=== PATIENT | female | born 1980 | race Caucasian/White ===

== ENCOUNTER 2018-11-16 07:15 | Day surgery (SDC) | payer MEDICAID, OTHER ==
[2018-11-16] MEDS ORDERED: LACTATED RINGERS 1,000 ML IV ONE (07:28)
[2018-11-16] MEDS ORDERED: SCOPOLAMINE HYDROBROMIDE 1.5MG/72HR PATCH TD ONE (07:28)
[2018-11-16] MEDS ORDERED: ENOXAPARIN SODIUM 40 MG/0.4 ML DISP.SYRIN SQ ONE (07:30)
[2018-11-16] MEDS ORDERED: FAMOTIDINE 20 MG/2 ML VIAL ONE (07:31)
[2018-11-16] MEDS ORDERED: LIDOCAINE HCL 1% MDV 200MG/20ML VIAL ONE (08:16)
[2018-11-16] MEDS ORDERED: LIDOCAINE HCL 1% PF 300MG/30ML VIAL ONE (08:48)
[2018-11-16] MEDS ORDERED: NORMAL SALINE 1,000 ML IV.SOLN IV ONE (08:48)
[2018-11-16] MEDS ORDERED: fentaNYL CITRATE/PF 100 MCG/2 ML INJ. ONE ×2 (08:48→12:12)
[2018-11-16] MEDS ORDERED: BUPIV. HCL 0.25% (2.5MG/ML)/EPI. (1:200,000) PF 10 ML VIAL IM ONE (08:48)
[2018-11-16] MEDS ORDERED: KETOROLAC TROMETHAMINE 30 MG/1ML VIAL ONE (08:48)
[2018-11-16] MEDS ORDERED: ONDANSETRON HCL/PF 4 MG/ 2ML VIAL ONE (08:48)
[2018-11-16] MEDS ORDERED: SEVOFLURANE 250 ML LIQUID IH ONE (08:48)
[2018-11-16] MEDS ORDERED: ACETAMINOPHEN 1,000 MG/100 ML INJ IV ONE (08:48)
[2018-11-16] MEDS ORDERED: MIDAZOLAM HCL 2 MG/2 ML VIAL ONE (08:48)
[2018-11-16] MEDS ORDERED: PROPOFOL 200 MG/20 ML VIAL IV ONE (08:48)
[2018-11-16] MEDS ORDERED: ceFAZolin SODIUM 1 GM VIAL ONE (08:48)
[2018-11-16] MEDS ORDERED: ROCURONIUM BROMIDE 10 MG/ML 5ML VIAL ONE (08:48)
[2018-11-16] MEDS ORDERED: FENTANYL CITRATE/PF 250 MCG/5 ML INJ. ONE (08:48)
[2018-11-16] MEDS ORDERED: SUGAMMADEX SODIUM 200 MG/2 ML VIAL IV ONE (08:48)
[2018-11-16] MEDS ORDERED: LACTATED RINGERS 1,000 ML IV.SOLN IV ONE ×2 (08:48)
[2018-11-16] MEDS ORDERED: DEXAMETHASONE SOD PHOS 4 MG/ML VIAL ONE (08:48)
[2018-11-16] MEDS ORDERED: LIDOCAINE HCL 2% PF 100MG/5ML VIAL IJ ONE (08:48)
[2018-11-16] MEDS ORDERED: HYDROcodone /APAP 5/325 1 EACH TABLET ONE (14:29)
[2019-01-12 10:01] VITALS: BP 150/87
== END 2018-11-16 14:35 | disposition home or self-care (01) ==
LOC: OPSURG 07:15
PROVIDERS: ATTEND Surgery
DX: E66.01 Morbid (severe) obesity due to excess calories (principal); K95.09 Other complications of gastric band procedure; Z32.02 Encounter for pregnancy test, result negative
CPT/HCPCS: 81025; J0690; J1100; J1650; J1885; J2001; J2250; J2405; J2704; J3010; 43774; A9270-GY; J7030; J7120

== ENCOUNTER 2019-01-11 06:59 | Day surgery (SDC) | payer MEDICAID ==
[2019-01-11] MEDS ORDERED: PROPOFOL 200 MG/20 ML VIAL IV ONE (08:48)
[2019-01-11] MEDS ORDERED: SODIUM CHLORIDE IRRIG SOLUTION 3,000 ML IRRIG.SOLN IR ONE (08:48)
[2019-01-11] MEDS ORDERED: DEXAMETHASONE SODIUM PHOSPHATE 10 MG/ML VIAL ONE (08:48)
[2019-01-11] MEDS ORDERED: FAMOTIDINE 20 MG/2 ML VIAL IV ONE (08:48)
[2019-01-11] MEDS ORDERED: LIDOCAINE HCL 2% PF 100MG/5ML VIAL IJ ONE (08:48)
[2019-01-11] MEDS ORDERED: ROCURONIUM BROMIDE 10 MG/ML 5ML VIAL ONE (08:48)
[2019-01-11] MEDS ORDERED: ESMOLOL HCL 100 MG/10 ML IV ONE (08:48)
[2019-01-11] MEDS ORDERED: LIDOCAINE HCL 1% PF 300MG/30ML VIAL ONE (08:48)
[2019-01-11] MEDS ORDERED: SUGAMMADEX SODIUM 200 MG/2 ML VIAL IV ONE (08:48)
[2019-01-11] MEDS ORDERED: LACTATED RINGERS 1,000 ML IV.SOLN IV ONE ×2 (08:48)
[2019-01-11] MEDS ORDERED: ENOXAPARIN SODIUM 40 MG/0.4 ML DISP.SYRIN SQ ONE (08:48)
[2019-01-11] MEDS ORDERED: BUPIV. HCL 0.25% (2.5MG/ML)/EPI. (1:200,000) PF 30 ML VIAL IJ ONE (08:48)
[2019-01-11] MEDS ORDERED: SEVOFLURANE 250 ML LIQUID IH ONE (08:48)
[2019-01-11] MEDS ORDERED: MIDAZOLAM HCL 2 MG/2 ML VIAL ONE (08:48)
[2019-01-11] MEDS ORDERED: LABETALOL HCL 20 MG/4 ML SYRINGE IV ONE ×2 (08:48→11:43)
[2019-01-11] MEDS ORDERED: LEVALBUTEROL NEB 1.25 MG/3 ML VIAL.NEB NEB ONE (08:48)
[2019-01-11] MEDS ORDERED: FENTANYL CITRATE/PF 250 MCG/5 ML INJ. ONE (08:48)
[2019-01-11] MEDS ORDERED: PROMETHAZINE HCL 25 MG/ML VIAL ONE ×2 (08:48→11:57)
[2019-01-11] MEDS ORDERED: CLINDAMYCIN PHOSPHATE 900 MG/6 ML VIAL ONE (08:48)
[2019-01-11] MEDS ORDERED: SCOPOLAMINE HYDROBROMIDE 1.5MG/72HR PATCH TD ONE (08:48)
[2019-01-11] MEDS ORDERED: hydrALAZINE HCL 20 MG/1 ML ONE ×2 (08:48→12:22)
[2019-01-11] MEDS ORDERED: HYDROmorphone HCL/PF 1 MG/ML VIAL ONE ×2 (08:48→12:01)
--- NOTE | 2019-01-12 12:06 | Operative Note ---
PREOPERATIVE DIAGNOSIS: 1. Morbid obesity. 2. History of lap band placement and subsequent removal. POSTOPERATIVE DIAGNOSIS: 1. Morbid obesity. 2. History of lap band placement and subsequent removal. PROCEDURES PERFORMED: 1. Laparoscopic vertical sleeve gastrectomy. 2. Upper gastrointestinal endoscopy. SURGEON: Negro Vasquez M.D. INDICATIONS FOR PROCEDURE: Ms. Alvarez is a 38-year-old female who presented with features of morbid obesity. She has a history of lap band placement and subsequent removal a few months ago. The patient gained some weight since the lap band was removed. The patient currently weighs 228 pounds with a BMI of 36. The patient was advised laparoscopic vertical sleeve gastrectomy and possible hiatal hernia repair. The patient showed understanding and agreed to proceed. DESCRIPTION OF PROCEDURE: After explaining to the patient in detail and informed consent was obtained, the patient was identified in the preoperative holding area. The patient was transferred to the operating room and was placed in supine position. Sequential compressive devices were placed for DVT prophylaxis. Preoperative antibiotics were given. After induction of anesthesia, the abdomen was prepped and draped in a sterile fashion. Through a left upper quadrant 1-cm incision, and using Optiview technique, the peritoneal cavity was entered and pneumoperitoneum was created. Thereafter, under direct vision, another 5-mm trocar was placed in the left midabdomen and another 15-mm trocar was placed in the right midabdomen. Through a 1-cm incision in the right subcostal region, another 5-mm trocar was placed. Through a 1-cm incision in the epigastrium, a Rena retractor was introduced and the left lobe of the liver was retracted. On initial inspection, the patient was noted to have no evidence of hiatal hernia. I took down the gastroepiploic vessels using a LigaSure. This was continued superiorly. The short gastric vessels were taken down. The gastrophrenic ligament was divided and the Angle of His was mobilized. The posterior attachments of the stomach on the pancreas were released. Distally, the gastroepiploic vessels were taken down up to about 4 cm proximal to the pylorus. At this point, a #38 [place] Hurst Bougie was introduced into the stomach and was placed along the lesser curve. The stomach was then divided in a vertical fashion with multiple Endo TIFFANY Covidien Black Load Staplers. The first firing was directed outwards towards the greater curvature. Subsequent firings were directed towards the Angle of His to create a loose sleeve around the #38 [place]an bougie. The bougie was then removed and an upper GI endoscopy was performed at this point. The scope was introduced into the esophagus and was gradually advanced into the stomach. The GE junction appeared normal. The sleeve size appeared normal. No evidence of any active bleeding was noted. The stomach was insufflated with air and irrigation of fluid along the staple line revealed no evidence of air leak. The stomach was then suctioned out and the scope was removed. Absolute hemostasis was ensured. Thorough saline irrigation was given. The Rena retractor was removed. Approximately 10 mL of a lidocaine- Marcaine mix was instilled under the left hemidiaphragm. The sleeve gastrectomy specimen was removed. The abdomen was then deflated. The incisions were closed with 4-0 Monocryl. Dermabond was applied. Approximately 10 mL of a lidocaine- Marcaine mix was injected into all the incisions. The patient was awakened from anesthesia and was transferred to the recovery room in stable condition. ESTIMATED BLOOD LOSS: Approximately 25 mL. CONDITION OF THE PATIENT: Stable. FLUIDS GIVEN: Per Anesthesia note. SPECIMEN(S) SENT: Sleeve gastrectomy specimen. COMPLICATIONS: None. ANESTHESIA: General. Negro Vasquez M.D. KILLIAN/waqar Job #[id number] @ 1128 @ 1123 BOBBI
== END 2019-01-11 13:25 | disposition other institution (70) ==
LOC: OPSURG 06:59
PROVIDERS: ATTEND Surgery
DX: E66.01 Morbid (severe) obesity due to excess calories (principal); Z68.36 Body mass index [BMI] 36.0-36.9, adult
CPT/HCPCS: 43235; 43775; 88305; A9270; J0360; J1170; J1650; J2001; J2250; J2550; J2704; J7120; J7614

== ENCOUNTER 2019-01-11 13:26 | Inpatient (IN) | payer MEDICAID ==
[2019-01-11] MEDS: 0.9 % SODIUM CHLORIDE 1,000 ML IV SCH ×2 (14:30→22:35)
[2019-01-11] MEDS: ONDANSETRON HCL/PF 4 MG/ 2ML VIAL IVP PRN (15:27)
[2019-01-11] MEDS: KETOROLAC TROMETHAMINE 30 MG/1ML VIAL IV PRN (15:30)
--- NOTE | 2019-01-11 15:57 | History and Physical Report ---
History of Present Illnes - History of Present Illness Reason for Visit: S/P gastric sleeve procedure History of Present Illness: Patient is a 38-year-old white female with a 10 year history of increasing weight gain to the point she now has morbid obesity. Patient has tried various dietary regimen medications and exercising is not been successful in maintaining weight loss. If is felt that she would benefit from gastric surgery to help promote weight loss. Patient underwent gastric sleeve procedure with no intraopertive complications. Patient is being admitted for post operative care. - Past Medical History Cardiac: denies: CAD, HTN Endocrine: denies: Diabetes, Hyperthyroidism - Past Surgical History Past Surgical History: Cholecystectomy, Other (lap band and removal, ganglion c yst removal, lasik eye surgery) - Past Family History Father Family History: Cancer (unknown source), (44yo) Mother Family History: Hypertension, Thyroid Disfunction - Past Social History Smoke: No Occupation: resturant cash crop farmer Alcohol: Rare Drugs: Marijuana (rare) Lives: Alone, With Family Domestic Violence: Negative - Health Maintenance Health Maintenance: Influenza Vaccine Influenza Vaccine: Current for this Influenza Season Pneumonia Vaccine: No Resuscitation Status: Resusciation Status Resuscitation Status Full Code - Unable to Obtain History Unable to Obtain: Yes Review of Systems - Review of Systems Constitutional: negative: Fever, Chills Eyes: negative: pain, conjunctivae inflammation, eyelid inflammation ENT: negative: Ear Discharge, Nose Pain, Nose Discharge, Nose Congestion, Mouth Pain, Throat Pain Respiratory: negative: Cough, Shortness of Breath, Hemoptysis, SOB with Excertion, Pleuritic Pain, Sputum, Wheezing Cardiovascular: negative: Chest Pain, Palpitations, Orthopnea, Edema Gastrointestinal: negative: Nausea, Vomiting, Abdominal Pain, Diarrhea, Constipation, Melena, Hematochezia Genitourinary: negative: Dysuria, Frequency, Incontinence, Hematuria, Retention Musculoskeletal: negative: Back Pain Skin: negative: Rash Neurological: negative: Weakness, Numbness, Incoordination, Change in Speech, Confusion, Seizures - Medications/Allergies Allergies/Adverse Reactions: Allergies Allergy/AdvReac Type Severity Reaction Status Date / Time adhesive tape Allergy Verified 01/11/19 14:33 magnesium sulfate Allergy Verified 01/11/19 14:33 [From Epsom Salt] oxycodone [From Percocet] Allergy Verified 01/11/19 14:33 Penicillins Allergy Verified 01/11/19 14:33 Home Medications: Home Medications Cetirizine HCl [Children's Zyrtec Allergy] 10 mg PO D PRN MDD 10 01/11/19 Omeprazole Magnesium [Acid Center Machine Operator] 40 mg PO D 01/11/19 Current Inpatient Medications: Current Inpatient Medications Hydrocodone Bitart/Acetaminophen (Hycet 7.5-325mg/15 Ml Ud Cup) 30 ml PO Q4 PRN PRN Reason: Moderate Pain (Score 5-7) Stop: 01/15/19 13:36 Enoxaparin Sodium (Lovenox) 40 mg SQ DAILY [facility] Stop: 01/26/19 08:59 Famotidine (Pepcid) 20 mg IVP BID [facility] Stop: 01/15/19 20:59 Hydromorphone HCl (Dilaudid) 2 mg PO Q4H PRN PRN Reason: Severe Pain (Score 8-10) Stop: 01/15/19 13:36 Sodium Chloride (Normal Saline) 1,000 mls @ 150 mls/hr IV Q7H [facility] Last Admin: 01/11/19 14:30 Dose: 150 mls/hr Clindamycin Phosphate 600 mg/ (Water) 50 mls @ 50 mls/hr IV Q8H [facility] Stop: 01/12/19 03:59 Ketorolac Tromethamine (Toradol) 30 mg IV Q6H PRN PRN Reason: For Mild Pain Stop: 01/15/19 13:36 Last Admin: 01/11/19 15:30 Dose: 30 mg Ondansetron HCl (Zofran) 4 mg IVP Q6H PRN PRN Reason: Nausea / Vomiting Stop: 01/15/19 13:36 Last Admin: 01/11/19 15:27 Dose: 4 mg Exam - Exam Vital Signs: Vital Signs (72 hours) 01/11/19 14:00 Temperature 97.5 F L Pulse Rate [ 77 Left] Respiratory 22 Rate Blood Pressure 154/89 [Left Arm] O2 Sat by Pulse 94 Oximetry General: Alert, Oriented to Person, Oriented to Place, Oriented to Time, Cooperative HEENT: Atraumatic, PERRLA, EOMI, Mouth Mucous membr. moist/[place], Nose Mucous membr. moist/[place] Neck: Normal Range of Motion Carotids: WNL Thyroid: WNL Lungs: Clear to auscultation, Normal air movement, Speaks full Sentences Cardiovascular: Regular rate, Normal S1, Normal S2, No murmurs Abdomen: Normal bowel sounds, Soft, No hepatospenomegaly, No masses, Other (mild diffuse tenderness, incision sites look clean), Decreased Bowel Sounds. No: Distended Integumentary: Normal, [place], Warm, Dry Extremities: No clubbing, No cyanosis, No edema, Normal pulses, No tenderness/swelling Neurological: Normal gait, Normal speech, Strength Equal Bilat, Normal tone, Sensation intact, Cranial nerves 3-12 NL, Reflexes 2+ Psych/Mental Status: Mental status NL, Mood NL, Appropriate Affect, Intact Judgment Assessment/Plan - Assessment/Plan (1) S/P gastric surgery Status: Acute Assessment: stable (2) Environmental allergies Status: Acute Assessment: stable VTE Assessment - RISK FACTOR SCORE VTE RISK FACTOR SCORES: AGE 40-60 YEARS, MAJOR SURGERY/ANESTHESIA TIME > 1 HOUR - RISK VTE MODERATE RISK: SCORE OF 2 (RISK PROXIMAL DVT 2-4%) PROPHYAXIS NEEDED
[2019-01-11 17:00] VITALS: BMI 39.6
[2019-01-11] MEDS ORDERED: PROMETHAZINE HCL 25 MG in 0.9 % SODIUM CHLORIDE 50 ML IV PRN (18:29)
[2019-01-11] MEDS ORDERED: PROMETHAZINE HCL 25 MG/ML VIAL ONE (18:31)
[2019-01-11] MEDS ORDERED: 0.9 % SODIUM CHLORIDE(MINIBAG+ 100 ML IV ONE (18:35)
[2019-01-11] MEDS: HYDROmorphone HCL 2 MG TABLET PO PRN (18:50)
[2019-01-11] MEDS: FAMOTIDINE 20 MG/2 ML VIAL IVP SCH (20:01)
[2019-01-11] MEDS ORDERED: CLINDAMYCIN PHOSPHATE/D5W 600 MG/50 ML PIGGYBACK IV ONE (20:16)
[2019-01-11] MEDS: CLINDAMYCIN PHOSPHATE/D5W 600 MG in PREMIX BAG 1 BAG IV SCH (20:30)
[2019-01-12] MEDS: KETOROLAC TROMETHAMINE 30 MG/1ML VIAL IV PRN ×2 (01:25→21:02)
[2019-01-12] MEDS: ONDANSETRON HCL/PF 4 MG/ 2ML VIAL IVP PRN ×3 (01:30→21:03)
[2019-01-12] MEDS: HYDROCODON-ACETAMIN 7.5-325/15ML SOLN UD CUP PO PRN ×2 (01:44→11:17)
[2019-01-12] MEDS ORDERED: CLINDAMYCIN PHOSPHATE/D5W 600 MG/50 ML PIGGYBACK IV ONE (02:36)
[2019-01-12] MEDS: CLINDAMYCIN PHOSPHATE/D5W 600 MG in PREMIX BAG 1 BAG IV SCH (02:45)
[2019-01-12] MEDS: 0.9 % SODIUM CHLORIDE 1,000 ML IV SCH ×3 (04:17→17:51)
--- NOTE | 2019-01-12 06:24 | Inpatient Progress Note ---
Subjective - Required Recertification Statement I anticipate X number of days because-include discharge plan: 1 - Review of Systems Events since last encounter: Patient states that she had a decent night-she had some nausea yesterday- she states nausea is mild this morning- abdominal pain is improving- she states that she has been belching and passing gas. She is excited that she will get to advance her diet today- she has family at the bedside- educated patient on continuing to ambulate today, continue to use incentive spirometer frequently and use SCDs while in bed. General: Appetite (hungry). Denies: Chills, Night Sweats HEENT: Denies: Head Aches, Sinus Congestion Pulmonary: Denies: Dyspnea, Cough Cardiovascular: Denies: Chest Pain, Palpitations, Light Headedness Gastrointestinal: Nausea, Abdominal Pain. Denies: Vomiting Genitourinary: Denies: Dysuria Musculoskeletal: Denies: Back Pain Neurological: Denies: Weakness, Confusion Objective - Exam Vitals and I&O: Vital Signs Temp 97.9 F 01/12/19 06:00 Pulse 56 L 01/12/19 06:00 Resp 18 01/12/19 06:00 BP 140/66 01/12/19 06:00 Pulse Ox 97 01/12/19 06:00 Intake & Output 01/11/19 01/11/19 01/12/19 11:59 23:59 11:59 Intake Total 600 Output Total 1400 700 Balance -800 -700 Weight 101.605 kg Intake: IV 600 right AC 600 Output: Urine 1400 700 Other: Voiding Method Toilet # Voids 1 # Bowel Movements 1 General: Alert, Oriented to Person, Oriented to Place, Oriented to Time, Solar Project Manager perative, No acute distress, Morbidly Obese HEENT: PERRLA, Mouth Mucous membr. moist/[place], Nose Mucous membr. moist/[place] Neck: Supple, +2 carotid pulse wo bruit Lungs: Clear to auscultation, Normal air movement, Speaks full Sentences Cardiovascular: Regular rate, Normal S1, Normal S2 Abdomen: Soft, Decreased Bowel Sounds Extremities: No edema, Normal pulses, No tenderness/swelling Skin: Normal, [place], Warm, Dry Neurological: Normal gait, Normal speech, Strength Equal Bilat, Normal tone, Sensation intact Psych/Mental Status: Mental status NL, Mood NL, Appropriate Affect, Intact Judgment Assessment/Plan - Assessment/Plan (1) Morbid (severe) obesity due to excess calories Status: Acute Current Visit: Yes Plan: will continue with gastric sleeve protocol diet (2) S/P gastrointestinal surgery Status: Acute Current Visit: Yes Assessment: Incision without redness or drainage, positive bowel sounds, minimal discomfort, belching and flatus, no extremity pain or edema Plan: Will continue with IVF, IV Pepcid, frequent ambulation, frequent incentive spirometer use, SCDs while in bed, advance diet per bariatric stage 1
[2019-01-12] MEDS: FAMOTIDINE 20 MG/2 ML VIAL IVP SCH ×2 (09:38→21:10)
[2019-01-12] MEDS: ENOXAPARIN SODIUM 40 MG/0.4 ML DISP.SYRIN SQ SCH (09:38)
[2019-01-12] MEDS: HYDROmorphone HCL 2 MG TABLET PO PRN (16:09)
[2019-01-13] MEDS: 0.9 % SODIUM CHLORIDE 1,000 ML IV SCH ×2 (00:30→06:24)
[2019-01-13] MEDS: KETOROLAC TROMETHAMINE 30 MG/1ML VIAL IV PRN (06:18)
--- NOTE | 2019-01-13 06:58 | Discharge Summary ---
Discharge Summary - Discharge Sumary History of Present Illness: Patient is a 38-year-old white female with an extensive history of increasing weight gain to the point she now has morbid obesity. Patient has tried various dietary regimens, medications, and exercising but has not been successful in maintaining weight loss. Condition at Discharge: Stable Home Medications: Ambulatory Orders Medication Instructions Recorded Cetirizine HCl [Children's Zyrtec 10 mg PO D PRN MDD 10 01/11/19 Allergy] Omeprazole Magnesium [Acid Blackjack Pit Boss] 40 mg PO D 01/11/19 Consultations this Visit: None Procedures this Visit: Other (S/P Gastric Sleeve Procedure) Allergies/Adverse Reactions: Allergies Allergy/AdvReac Type Severity Reaction Status Date / Time adhesive tape Allergy Verified 01/11/19 14:33 magnesium sulfate Allergy Verified 01/11/19 14:33 [From Epsom Salt] oxycodone [From Percocet] Allergy Verified 01/11/19 14:33 Penicillins Allergy Verified 01/11/19 14:33 Discharge Summary: Patient is a 38-year-old female that underwent the gastric sleeve procedure and has done well. She has been very cooperative with her care by ambulating frequently, using her incentive spirometer, and wearing her SCDs while in bed. She has been compliant with her diet during hospitalization. She is having minimal discomfort at this time and minimal nausea- she has is passing gas and belching. She is aware of discharge instructions and what she can and cannot do post surgical- she is aware of the strict diet she must follow to decrease discomfort and have success after procedure. She has family support and significant other will be taking her home- medications written by surgeon given to patient. She feels ready to go home. Hospital Course: Patient received pain medications, antiemetics, and IVF and was transitioned to oral. She has been up ambulating and using incentive spirometer. - Final Diagnosis (1) Morbid (severe) obesity due to excess calories Problems: Will follow gastric sleeve diet protocol Right or Left: Right (2) S/P gastrointestinal surgery Problems: Incision without redness or drainage, positive bowel sounds, minimal discomfort, belching and flatus, no extremity pain or edema Right or Left: Right
[2019-01-13] MEDS: ENOXAPARIN SODIUM 40 MG/0.4 ML DISP.SYRIN SQ SCH (08:42)
[2019-01-13 08:46] VITALS: BP 135/75
[2019-01-13] MEDS: ONDANSETRON HCL/PF 4 MG/ 2ML VIAL IVP PRN (09:12)
[2019-01-13] MEDS: HYDROmorphone HCL 2 MG TABLET PO PRN (09:12)
[2019-01-13] MEDS: FAMOTIDINE 20 MG/2 ML VIAL IVP SCH (09:12)
== END 2019-01-13 09:45 | disposition home or self-care (01) | DRG 948 ==
LOC: SOUTH 13:26
PROVIDERS: ADMIT Family Medicine; ATTEND Family Medicine
DX: G89.18 Other acute postprocedural pain (principal); R11.0 Nausea; E66.01 Morbid (severe) obesity due to excess calories; J30.2 Other seasonal allergic rhinitis
CPT/HCPCS: 97116; 97530; 97535; A9270; J1650; J1885; J2405; J2550; J7030; 99221; 99231; 99238